=== PATIENT | female | born 1980 | race Hispanic/Latino ===

== ENCOUNTER 2025-01-17 11:34 | Emergency (ER) | payer BC ==
[~2025-01-17] VITALS: Ht 165.1 cm; Wt 73.5 kg
[2025-01-17 11:39] VITALS: TEMP 98
[2025-01-17 12:14] LABS: BASOPHILS % 0.3 % (0.0-1.0); EOSINOPHILS % 0.8 % (0.0-6.0); LYMPHOCYTES % 36.1 % (18.0-39.1); MONOCYTES % 6.5 % (4.4-11.3); NEUTROPHILS % 55.9 % (38.7-80.0); RED CELL DISTRIBUTION WIDTH 13.7 % (11.7-14.4)
[2025-01-17 12:38] LABS: EST GLOMERULAR FILTRATION RATE 93.0 ML/MIN (>=60)
[2025-01-17] MEDS: SODIUM CHLORIDE 0.9% 1000ML 1,000 ML IV ONE (12:55)
[2025-01-17] MEDS: DIPHENHYDRAMINE HCL INJ 50 MG/ML VIAL IV ONE (12:55)
[2025-01-17] MEDS: PROCHLORPERAZINE EDISYLATE 5 MG/ML VIAL IV ONE (12:56)
[2025-01-17] MEDS: KETOROLAC TROMETHAMINE 30 MG/ML VIAL IV STA (12:56)
[2025-01-17] MEDS: ACETAMINOPHEN 325 MG TAB PO ONE (12:57)
[2025-01-17 14:58] VITALS: PULSE 84; RESP 18; O2SAT 100
[2025-01-17 15:01] VITALS: TEMP 98.6
== END 2025-01-17 14:55 | disposition home or self-care (01) ==
LOC: ER 11:56
DX: G43.909 Migraine, unspecified, not intractable, without status migrainosus (principal); H53.8 Other visual disturbances; R11.0 Nausea
CPT/HCPCS: 36415; 80048; 84702; 85025; 99284; J0780; J1200; J1885; J7030